=== PATIENT | male | born 2000 | race Caucasian/White ===

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

== ENCOUNTER 2019-12-05 10:03 | Emergency (ER) | payer MEDICAID, OTHER ==
--- NOTE | 2019-12-05 11:51 | ED Physician Documentation ---
History of Present Illness - Stated complaint Stated Complaint: RT WRIST PX - Chief complaint Chief Complaint: Ext Problem - Additonal information Additional information: This is a 19-year-old male who presents requesting an OT referral. 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 He developed discomfort at the base of his right wrist around 3 months ago, and this is been persistent since that time. He was seen by an occupational therapist to did a Rosamaria's test and this was positive, they recommend physical therapy and unfortunately he is not been able to see his primary care provider to get a referral for physical therapy. He states that it is bothersome at work, and he wants to heal that up to get back to work soon as possible. He has not been taking Ibuprofen or other medications regularly for this. Review of Systems Skin: denies: Rash Musculoskeletal: reports: Extremity pain PD PAST MEDICAL HISTORY - Past Medical History Past Medical History: No - Past Surgical History Past Surgical History: Yes - Present Medications Home Medications: Ambulatory Orders Medication Instructions Recorded Confirmed Azithromycin [Zithromax] 250 mg PO DAILY #6 tablet 04/22/17 - Allergies Allergies/Adverse Reactions: Allergies Allergy/AdvReac Type Severity Reaction Status Date / Time No Known Drug Allergies Allergy Verified 12/05/19 10:12 - Social History Does the pt smoke?: No Smoking Status: Never smoker Does the pt drink ETOH?: No Does the pt have substance abuse?: No - Immunizations Immunizations are current?: Yes - POLST Patient has POLST: No PD ED PE NORMAL - Vitals Vital signs reviewed: Yes - General General: Alert and oriented X 3, No acute distress - HEENT HEENT: Atraumatic - Cardiac Cardiac: Strong equal pulses - Respiratory Respiratory: No respiratory distress - Extremities Extremities: Other (Hands and wrists are normal in appearance, and symmetric. Patient has a positive Rosamaria test on the right. There is no significant swelling at the base of the joint. There is no bony tenderness. Patient is 5 out of 5 strength with thumb abduction, abduction, flexion and extension. Sensation is intact over the distribution of the median, radial,, and ulnar nerves. 5-5 strength with hand squeeze.) - Neuro Neuro: Alert and oriented X 3 - Psych Psych: Normal mood, Normal affect Results - Vitals Vitals: Oxygen O2 Source Room air PD MEDICAL DECISION MAKING - ED course ED course: Pt presents with chronic symptoms consistent with De Quervain's tenosynovitis. No signs of infection, fracture, or other pathology today. He asks for an OT referral as he is not yet established with a PCP. I provided this referral to the best of my ability, reviewed care for his injury, and reinforced that he needs to establish with a PCP. He has an appt scheduled in a few weeks. He was discharged in good condition. Departure - Departure Disposition: 01 Home, Self Care Clinical Impression: De Quervain's disease (tenosynovitis) Condition: Good Comments: You do appear to have tenosynovitis, which is irritation of the tendon at your thumb. Please take ibuprofen 600 mg every 6 hours for the discomfort, I am also writing you for occupational therapy as requested, though I am not sure if they will take my referral, this often has to be arranged through your primary care provider rather than the emergency department. If you having significant worsening return to the emergency department. If you need a longer course of occupational therapy, this can be arranged by your primary care provider. Discharge Date/Time: 12/05/19 12:05
[2019-12-05 12:05] VITALS: BP 138/88
== END 2019-12-05 12:05 | disposition home or self-care (01) ==
LOC: ED 10:03
DX: M65.4 Radial styloid tenosynovitis [de Quervain] (principal); X50.3XXA Overexertion from repetitive movements, initial encounter; Y93.89 Activity, other specified; Y92.814 Boat as the place of occurrence of the external cause; Y99.0 Civilian activity done for income or pay
CPT/HCPCS: 1040M; 99281; 99282

== ENCOUNTER 2020-08-22 07:00 | Outpatient (CLI) | payer MEDICAID | END 2020-08-22 23:59 | disposition home or self-care (01) | LOC: COV 07:00 | PROVIDERS: ATTEND Physician Assistant Medical | DX: B34.9 Viral infection, unspecified (principal); Z20.828 Contact with and (suspected) exposure to other viral communicable diseases ==